=== PATIENT | male | born 1990 | race Two or more races ===

== ENCOUNTER 2017-07-21 20:57 | Emergency (ER) | payer OTHER ==
[2017-07-21 21:10] VITALS: BMI 30.7
[2017-07-21 21:25] LABS: BASOPHIL 0.3 % (0-2.0); EOSINOPHIL 0.6 % (0-4.5); MCHC 33.6 g/dl (32.0-35.9); MEAN CELL VOLUME 80.4 fl (80-96); MEAN PLT VOLUME 8.6 fl (7.5-11.1); NEUTROPHILS 81.4 % (42.8-82.8); PLATELET COUNT 222 K/MM3 (134-434); RDW 13.8 % (11.9-15.9); WHITE BLOOD COUNT 12.6 K/mm3 (4.0-10.0)
[2017-07-21] MEDS ORDERED: ONDANSETRON 4 MG/2 ML VIAL IVPUSH ONE (21:31)
[2017-07-21] MEDS ORDERED: FAMOTIDINE 20 MG/50 ML IVPB 50 ML IVPB ONE ×2 (21:31→21:43)
[2017-07-21] MEDS ORDERED: SODIUM CHLORIDE 0.9% 1000 ML INFUS.BAG IV ONE (21:34)
--- NOTE | 2017-07-21 21:40 | PDOC ---
History of Present Illness - General Chief Complaint: Nausea/Vomiting Stated Complaint: STOMACH PAIN Time Seen by Provider: 07/21/17 21:11 History Source: Patient - History of Present Illness Initial Comments: 07/21/17 23:19 26 year old male with nausea, vomiting and epigastric/ RUQ pain since this morning. reports bilious vomiting > 20 times today with no improvement in symptoms. denies past medical history. Past History - Past Medical History Allergies/Adverse Reactions: Allergies Allergy/AdvReac Type Severity Reaction Status Date / Time No Known Allergies Allergy Verified 07/21/17 21:10 Home Medications: Ambulatory Orders Famotidine [Pepcid] 40 mg PO DAILY #14 tablet 07/22/17 Ondansetron [Zofran -] 4 mg PO BID PRN #4 tablet 07/22/17 Asthma: Yes (CHILDHOOD) - Psycho/Social/Smoking Cessation Hx Anxiety: No Suicidal Ideation: No Smoking Status: Yes Smoking History: Current every day smoker Number of Cigarettes Smoked Daily: 10 Information on smoking cessation initiated: No 'Breaking Loose' booklet given: 10/27/15 Hx Alcohol Use: No Drug/Substance Use Hx: No Review of Systems - Review of Systems Able to Perform ROS?: Yes Is the patient limited Romansh proficient: No Constitutional: No: Symptoms Reported, See HPI, Chills, Diaphoresis, Fever, Loss of Appetite, Malaise, Night Sweats, Weakness, Weight Stable, Unintentional Wgt. Loss, Unexplained wgt Loss, Other ABD/GI: Yes: Nausea, Vomiting, Abdominal cramping. No: Symptoms Reported, See HPI, Abdominal Distended, Abd. Pain w/ defecation, Blood Streaked Bowels, Constipated, Diarrhea, Difficulty Swallowing, Poor Appetite, Poor Fluid Intake, Rectal Bleeding, Indigestion, Tarry Stools, Other : No: Symptoms Reported, See HPI, Burning, Dysuria, Discharge, Frequency, Flank Pain, Hematuria, Incontinence, Pain, Urgency, Testicular Mass, Testicular Swelling, Lesions, Testicular Pain, Other Musculoskeletal: No: Symptoms Reported, See HPI, Back Pain, Gout, Joint Pain, Joint Swelling, Muscle Pain, Muscle Weakness, Neck Pain, Joint Stiffness, Other *Physical Exam - Vital Signs Last Vital Signs Temp Pulse Resp BP Pulse Ox 79 18 131/55 100 07/21/17 21:01 07/21/17 21:01 07/21/17 21:01 07/21/17 21:01 - Physical Exam General Appearance: Yes: Appropriately Dressed Respiratory/Chest: positive: Lungs Clear, Normal Breath Sounds Cardiovascular: positive: Regular Rhythm, Regular Rate Gastrointestinal/Abdominal: positive: Normal Bowel Sounds, Soft Extremity: positive: Normal Capillary Refill, Normal Inspection, Normal Range of Motion Integumentary: positive: Normal Color, Dry, Warm Neurologic: positive: Fully Oriented, Alert, Normal Mood/Affect ED Treatment Course - LABORATORY CBC & Chemistry Diagram: 07/21/17 21:15 07/21/17 21:15 - ADDITIONAL ORDERS Additional order review: 07/21/17 21:15 RBC 6.08 H MCV 80.4 MCHC 33.6 RDW 13.8 MPV 8.6 Neutrophils % 81.4 D Lymphocytes % 10.6 D Monocytes % 7.1 Eosinophils % 0.6 D Basophils % 0.3 - RADIOLOGY Radiology Studies Ordered: Category Date Time Status ABDOMEN US -LIMITED [US] Stat Ultrasound 07/21/17 21:32 Ordered Progress Note - Progress Note Progress Note: A: abdominal pain P: cbc cmp lipase abdominal u/s ua Medical Decision Making - Medical Decision Making 07/22/17 02:34 vomited x1 . will give reglan IV and reevaluate 07/22/17 04:44 tolerating PO. will d/c home *DC/Admit/Observation/Transfer Diagnosis at time of Disposition: Gastroenteritis - Discharge Dispostion Disposition: HOME - Prescriptions Prescriptions: Famotidine [Pepcid] 40 mg PO DAILY #14 tablet Ondansetron [Zofran -] 4 mg PO BID PRN #4 tablet PRN Reason: Nausea - Patient Instructions Printed Discharge Instructions: DI for Nausea -- Adult, DI for Vomiting -- Adult Additional Instructions: drink plenty of fluids start a BRAT (bananas, rice, apples, toast) diet. follow up with your doctor as soon as possible. return to the ED if symptoms worsen. - Post Discharge Activity Work/School Note: Back to Work
[2017-07-21] MEDS ORDERED: ONDANSETRON 4 MG/2 ML VIAL ONE (21:43)
[2017-07-21 21:56] LABS: ALBUMIN 4.6 g/dl (3.4-5.0); ANION GAP 11 (8-16); BILIRUBIN,TOTAL 0.7 mg/dL (0.2-1.0); CALCIUM 9.9 mg/dL (8.5-10.1); CO2 23 mmol/L (21-32); CREATININE 0.9 mg/dL (0.7-1.3); GLUCOSE,RANDOM 107 mg/dL (74-106); SGOT/AST 32 U/L (15-37); SGPT/ALT 60 U/L (12-78)
[2017-07-21 21:57] LABS: ALK PHOS 74 U/L (45-117)
[2017-07-21] MEDS ORDERED: morphine CARPU-JECT 4 MG/1 ML DISP.SYRIN IVPUSH ONE (22:27)
[2017-07-21] MEDS ORDERED: morphine CARPU-JECT 10 MG/1 ML DISP.SYRIN ONE (22:31)
--- NOTE | 2017-07-21 22:34 | PDOC ---
*Physical Exam - Vital Signs Last Vital Signs Temp Pulse Resp BP Pulse Ox 79 18 131/55 100 07/21/17 21:01 07/21/17 21:01 07/21/17 21:01 07/21/17 21:01 ED Treatment Course - LABORATORY CBC & Chemistry Diagram: 07/21/17 21:15 07/21/17 21:15 - ADDITIONAL ORDERS Additional order review: Laboratory Results 07/21/17 21:15 Sodium 138 Potassium 3.7 Chloride 104 Carbon Dioxide 23 D Anion Gap 11 BUN 8 Creatinine 0.9 D Creat Clearance w eGFR > 60 Random Glucose 107 H D Calcium 9.9 Total Bilirubin 0.7 D AST 32 D ALT 60 D Alkaline Phosphatase 74 Total Protein 8.0 Albumin 4.6 Lipase 140 07/21/17 21:15 RBC 6.08 H MCV 80.4 MCHC 33.6 RDW 13.8 MPV 8.6 Neutrophils % 81.4 D Lymphocytes % 10.6 D Monocytes % 7.1 Eosinophils % 0.6 D Basophils % 0.3 - Medications Given in the ED: ED Medications Discontinued Medications Generic Name Dose Route Start Last Admin Trade Name Freq PRN Reason Stop Dose Admin Famotidine/Sodium Chloride 50 mls @ 100 mls/hr 07/21/17 21:31 07/21/17 21:47 Pepcid 20 Mg Premixed Ivpb - IVPB 07/21/17 22:00 100 mls/hr ONCE ONE Administration Morphine Sulfate 4 mg 07/21/17 22:27 07/21/17 22:29 Morphine Injection - IVPUSH 07/21/17 22:28 4 mg ONCE ONE Administration Ondansetron HCl 4 mg 07/21/17 21:31 07/21/17 21:47 Zofran Injection IVPUSH 07/21/17 21:32 4 mg ONCE ONE Administration Sodium Chloride 1,000 ml 07/21/17 21:34 07/21/17 21:47 Normal Saline - IV 07/21/17 21:35 1,000 ml ONCE ONE Administration Medical Decision Making - Medical Decision Making 07/21/17 22:34 agree with care from ARTEM Guillaume *DC/Admit/Observation/Transfer Diagnosis at time of Disposition: Gastroenteritis - Discharge Dispostion Disposition: HOME - Prescriptions Prescriptions: Famotidine [Pepcid] 40 mg PO DAILY #14 tablet Ondansetron [Zofran -] 4 mg PO BID PRN #4 tablet PRN Reason: Nausea - Patient Instructions Printed Discharge Instructions: DI for Nausea -- Adult, DI for Vomiting -- Adult Additional Instructions: drink plenty of fluids start a BRAT (bananas, rice, apples, toast) diet. follow up with your doctor as soon as possible. return to the ED if symptoms worsen. - Post Discharge Activity Work/School Note: Back to Work
[2017-07-22] MEDS ORDERED: DICYCLOMINE HCL 20 MG TABLET PO ONE (00:28)
[2017-07-22] MEDS ORDERED: DICYCLOMINE HCL 10 MG CAPSULE ONE (00:50)
[2017-07-22 01:47] LABS: URINE APPEARANCE CLEAR; URINE BILIRUBIN NEGATIVE (NEGATIVE); URINE BLOOD NEGATIVE (NEGATIVE); URINE COLOR LTYELLOW; URINE GLUCOSE (UA) NEGATIVE (NEGATIVE); URINE KETONE 1+ (NEGATIVE); URINE LEUK ESTERASE NEGATIVE (NEGATIVE); URINE NITRITE NEGATIVE (NEGATIVE); URINE PROTEIN NEGATIVE (NEGATIVE); URINE UROBILINOGEN NEGATIVE mg/dL (0.2-1.0)
[2017-07-22] MEDS ORDERED: SODIUM CHLORIDE 1,000 ML IV STA (02:31)
[2017-07-22] MEDS ORDERED: METOCLOPRAMIDE HCL INJECTION 10 MG/2 ML VIAL IVPB ONE (02:31)
[2017-07-22] MEDS ORDERED: METOCLOPRAMIDE HCL INJECTION 10 MG/2 ML VIAL ONE (02:32)
[2017-07-22 04:59] VITALS: BP 148/92; PULSE 68
== END 2017-07-22 04:59 | disposition home or self-care (01) ==
LOC: JER 20:57
PROC: 3E033GC Introduction of Other Therapeutic Substance into Peripheral Vein, Percutaneous Approach (ICD-10-PCS; principal; 2017-07-21)
PROC: 3E033GC Introduction of Other Therapeutic Substance into Peripheral Vein, Percutaneous Approach (ICD-10-PCS; 2017-07-21)
PROC: 3E033NZ Introduction of Analgesics, Hypnotics, Sedatives into Peripheral Vein, Percutaneous Approach (ICD-10-PCS; 2017-07-21)
DX: K52.9 Noninfective gastroenteritis and colitis, unspecified (principal)
CPT/HCPCS: 36415; 76705-TC; 80053; 81003; 83690; 85025; 96365; 96375; 99282-25

== ENCOUNTER 2020-01-18 18:53 | Inpatient (IN) | payer OTHER ==
--- NOTE | 2020-01-18 19:03 | PDOC ---
Rapid Medical Evaluation Medical Evaluation: Allergies Allergy/AdvReac Type Severity Reaction Status Date / Time No Known Allergies Allergy Verified 07/21/17 21:10 01/18/20 19:03 I have performed a brief in-person evaluation of this patient. The patient presents with a chief complaint of:intractable n/v and abd pain that started at 1pm today. No change in BM, f/c. Reports daily marijuana use. Had similar sxs in past and dx w/ ? pancreatitis per pt. Denies ETOH use today Pertinent physical exam findings:pt actively vomiting at triage, Vss I have ordered the following:labs/IVF/zofran The patient will proceed to the ED for further evaluation. Discharge Disposition - Diagnosis Nausea and vomiting Qualifiers: Vomiting type: unspecified Vomiting Intractability: non-intractable Qualified Code(s): R11.2 - Nausea with vomiting, unspecified - Referrals - Patient Instructions - Post Discharge Activity
[2020-01-18 19:09] VITALS: BMI 29.7
[2020-01-18] MEDS ORDERED: SODIUM CHLORIDE 1,000 ML IV STA (19:09)
[2020-01-18] MEDS ORDERED: ONDANSETRON 4 MG/2 ML VIAL IVPUSH ONE (19:09)
[2020-01-18] MEDS ORDERED: ONDANSETRON 4 MG/2 ML VIAL ONE (19:33)
[2020-01-18 20:29] LABS: BASO % 0.3 % (0-2.0); HEMATOCRIT 44.4 % (35.4-49); HEMOGLOBIN 14.7 GM/dL (11.7-16.9); LYMPH % 6.3 % (8-40); MCH 26.9 pg (25.7-33.7); MCHC 33.2 g/dl (32.0-35.9); MEAN CELL VOLUME 81.1 fl (80-96); MEAN PLT VOLUME 9.2 fl (7.5-11.1); MONO % 4.9 % (3.8-10.2); NEUT % 88.5 % (42.8-82.8); PLATELET COUNT 221 K/MM3 (134-434); RBC 5.47 M/mm3 (4.00-5.60); RDW 13.8 % (11.9-15.9); WHITE BLOOD COUNT 12.4 K/mm3 (4.0-10.0)
[2020-01-18] MEDS ORDERED: FAMOTIDINE 20 MG/50 ML IVPB 20 MG/50 ML MG IVPB ONE ×2 (20:51→21:19)
[2020-01-18 20:57] LABS: ALBUMIN 4.5 g/dl (3.4-5.0); BILIRUBIN,TOTAL 0.6 mg/dL (0.2-1); BLOOD UREA NITROGEN 9.8 mg/dL (7-18); CALCIUM 10.1 mg/dL (8.5-10.1); POTASSIUM 4.5 mmol/L (3.5-5.1)
[2020-01-18] MEDS ORDERED: METOCLOPRAMIDE HCL INJECTION 10 MG/2 ML VIAL IVPUSH ONE (21:16)
[2020-01-18] MEDS ORDERED: morphine CARPU-JECT 2 MG/1 ML DISP.SYRIN IVPUSH ONE (21:16)
[2020-01-18] MEDS ORDERED: METOCLOPRAMIDE HCL INJECTION 10 MG/2 ML VIAL ONE (21:18)
[2020-01-18] MEDS ORDERED: MORPHINE SULFATE 2 MG/ML VIAL ONE (21:19)
--- NOTE | 2020-01-18 22:39 | PDOC ---
Documentation entered by Fred Herring SCRIBE, acting as scribe for Carmelina Chew DO. Carmelina Chew DO: This documentation has been prepared by the Nevaeh schmid Nirvannie, SCRIBE, under my direction and personally reviewed by me in its entirety. I confirm that the documentation accurately reflects all work, treatment, procedures, and medical decision making performed by me. History of Present Illness - General Chief Complaint: Nausea/Vomiting Stated Complaint: DEHYDRATED/POSSIBLE STOMACH VIRUS Time Seen by Provider: 01/18/20 19:04 History Source: Patient Exam Limitations: No Limitations - History of Present Illness Initial Comments: 01/18/20 20:05 The patient is a 29 year old male, with no significant past medical history, who presents to the emergency department with 2 days of left lower quadrant abdominal pain, nausea, and vomiting. As per patient, his symptoms initially onset 2 days ago with diarrhea and since has progressed to abdominal pain, nausea, and vomiting. Patient notes a similar episode approximately a year ago at which time he needed a cat scan of his pancreas. Per EMR, patient was evaluated in the ER in 2017 and diagnosed with gastroenteritis. He denies any excessive alcohol usage, hematemesis, melena, hematochezia, fever, chills, headache, dizziness. He denies any chest pain or shortness of breath. Allergies: NKDA Social History: Marijuana smoker (daily). Past History - Past Medical History Allergies/Adverse Reactions: Allergies Allergy/AdvReac Type Severity Reaction Status Date / Time No Known Allergies Allergy Verified 01/18/20 19:09 Home Medications: Ambulatory Orders Amoxicillin 0 mg PO DAILY 01/18/20 Asthma: Yes (CHILDHOOD) COPD: No - Psycho Social/Smoking Cessation Hx Smoking Status: Yes Smoking History: Never smoked Number of Cigarettes Smoked Daily: 10 'Breaking Loose' booklet given: 10/27/15 Hx Alcohol Use: No Drug/Substance Use Hx: No Review of Systems - Review of Systems Able to Perform ROS?: Yes Comments:: 01/18/20 20:06 GENERAL/CONSTITUTIONAL: No fever or chills. No weakness. HEAD, EYES, EARS, NOSE AND THROAT: No change in vision. No ear pain or discharge. No sore throat. GASTROINTESTINAL: +nausea, +vomiting, +diarrhea +abdominal pain. No constipation. GENITOURINARY: No dysuria, frequency, or change in urination. CARDIOVASCULAR: No chest pain or shortness of breath. RESPIRATORY: No cough, wheezing, or hemoptysis. MUSCULOSKELETAL: No joint or muscle swelling or pain. No neck or back pain. SKIN: No rash NEUROLOGIC: No headache, vertigo, loss of consciousness, or change in strength/ sensation. ENDOCRINE: No increased thirst. No abnormal weight change. HEMATOLOGIC/LYMPHATIC: No anemia, easy bleeding, or history of blood clots. ALLERGIC/IMMUNOLOGIC: No hives or skin allergy. All Other Systems: Reviewed and Negative *Physical Exam - Vital Signs Last Vital Signs Temp Pulse Resp BP Pulse Ox 95 H 18 109/46 L 100 01/18/20 19:06 01/18/20 19:06 01/18/20 19:06 01/18/20 19:06 - Physical Exam 01/18/20 20:06 GENERAL: Awake, in no acute distress HEAD: No signs of trauma EYES: PERRLA, EOMI, sclera anicteric, conjunctiva clear, visual acuity grossly intact ENT: Moist mucosa NECK: Normal ROM, supple, no lymphadenopathy or JVD. LUNGS: Breath sounds equal, clear to auscultation bilaterally. No wheezes, and no crackles. Normal work of breathing. HEART: Regular rate and rhythm, normal S1 and S2, no murmurs, rubs or gallops ABDOMEN: +LLQ tenderness. No guarding or rebound. Soft, normoactive bowel sounds. Non-distended. : Deferred. CHEST WALL: Nontender BACK: No midline tenderness. EXTREMITIES: Normal range of motion, no edema. No clubbing or cyanosis. No erythema, or tenderness NEUROLOGICAL: Alert, and oriented x4, Nonfocal. SKIN: Warm, Dry, normal turgor, no rashes or lesions noted. ED Treatment Course - LABORATORY CBC & Chemistry Diagram: 01/18/20 20:10 01/18/20 20:10 - ADDITIONAL ORDERS Additional order review: Laboratory Results 01/18/20 01/18/20 20:10 20:10 Sodium 140 Potassium 4.5 Chloride 108 H Carbon Dioxide 23 Anion Gap 10 BUN 9.8 Creatinine 1.0 Est GFR (CKD-EPI)AfAm 115.72 Est GFR (CKD-EPI)NonAf 99.85 Random Glucose 143 H Calcium 10.1 Total Bilirubin 0.6 AST 32 ALT 28 Alkaline Phosphatase 78 Total Protein 8.0 Albumin 4.5 Lipase 74 01/18/20 20:10 RBC 5.47 MCV 81.1 MCHC 33.2 RDW 13.8 MPV 9.2 Neutrophils % 88.5 H Lymphocytes % 6.3 L D Monocytes % 4.9 Eosinophils % 0.0 D Basophils % 0.3 - RADIOLOGY Radiology Studies Ordered: Category Date Time Status ABDOMEN & PELVIS CT WITH CONTR [CT] Stat CT Scan 01/18/20 20:49 Completed - Medications Given in the ED: ED Medications Discontinued Medications Generic Name Dose Route Start Last Admin Trade Name Freq PRN Reason Stop Dose Admin Sodium Chloride 1,000 mls @ 1,000 mls/hr 01/18/20 19:09 01/18/20 20:13 Normal Saline - IV 01/18/20 20:08 1,000 mls/hr ASDIR STA Administration Famotidine/Sodium Chloride 20 mg in 50 mls @ 100 mls/hr 01/18/20 20:51 21:32 Pepcid 20 Mg Premixed Ivpb - IVPB 01/18/20 21:20 100 mls/hr ONCE ONE Administration Metoclopramide HCl 10 mg 01/18/20 21:16 01/18/20 21:35 Reglan Injection - IVPUSH 01/18/20 21:17 10 mg ONCE ONE Administration Morphine Sulfate 2 mg 01/18/20 21:16 01/18/20 21:32 Morphine Injection - IVPUSH 01/18/20 21:17 2 mg ONCE ONE Administration Ondansetron HCl 4 mg 01/18/20 19:09 01/18/20 20:13 Zofran Injection IVPUSH 01/18/20 19:10 4 mg ONCE ONE Administration Medical Decision Making - Medical Decision Making 01/18/20 22:37 29-year-old male with history of marijuana abuse, daily with vomiting and lower abdominal pain CT scan consistent with possible colitis There are no secondary signs of acute appendicitis though appendix is not specifically identified Patient has persistent pain and vomiting despite IV fluids Pepcid Reglan and Zofran We will admit for observation and further management Discharge - Discharge Information Problems reviewed: Yes Clinical Impression/Diagnosis: Colitis, Abdominal pain Nausea and vomiting Qualifiers: Vomiting type: unspecified Vomiting Intractability: non-intractable Qualified Code(s): R11.2 - Nausea with vomiting, unspecified - Admission Yes - Follow up/Referral - Patient Discharge Instructions - Post Discharge Activity
--- NOTE | 2020-01-18 22:49 | PN ---
Teaching Attending Note Name of Resident: Marlen Childers ATTENDING PHYSICIAN STATEMENT I saw and evaluated the patient. I reviewed the resident's note and discussed the case with the resident. I agree with the resident's findings and plan as documented. SUBJECTIVE: Patient is a 29 year old man with a PMH of Daily marijuana use and Tobacco use who presents to the ER with 2 days of left lower quadrant abdominal pain, nausea , and vomiting. His symptoms initially started 2 days ago with diarrhea and since has progressed to abdominal pain, nausea, and vomiting. Patient notes a similar episode approximately a year ago at which time he needed a CAT scan of his pancreas. Per EMR, patient was evaluated in the ER on 07/21/2017 for intractable vomiting and diagnosed with gastroenteritis. He denies any excessive alcohol usage, hematemesis, melena, hematochezia, fever, chills, headache, dizziness, dysuria, chest pain or shortness of breath. Denies alcohol or illicit drug abuse. No sick contacts or recent travels. OBJECTIVE: Alert Vital Signs Period Temp Pulse Resp BP Sys/Jameson Pulse Ox Last 24 Hr 97.9 F 95-95 18-20 109-111/46-61 100-100 HEENT: No Jaundice, eye redness or discharge, PERRLA, EOMI. Normocephalic, atraumatic. External ears are normal and hearing is grossly intact. No nasal discharge. Neck: Supple, nontender. No palpable adenopathy or thyromegaly. No JVD Chest: Good effort. Clear to auscultation and percussion. Heart: Regular. No S3, rub or murmur Abdomen: Not distended, soft, nontender and no HSM. No rebound or guarding. Normal bowel sounds. Ext: Peripheral pulses intact. No leg edema. Skin: Warm and dry. No petechiae, rash or ecchymosis. Neuro: Alert. Oriented x3. CN 2-12 grossly intact. Sensation grossly intact in all four extremities and DTR are symmetric. Psych: Appropriate mood and affect. Good insight. Home Medications Medication Instructions Recorded Amoxicillin 0 mg PO DAILY 01/18/20 Abnormal Lab Results 01/18/20 01/18/20 20:10 20:10 WBC 12.4 H Absolute Neuts (auto) 11.0 H Neutrophils % 88.5 H Lymphocytes % 6.3 L D Chloride 108 H Random Glucose 143 H ASSESSMENT AND PLAN: 1. Colitis - CT scan of abdomen/pelvis with IV contrast didnot visualize the appendix and showed possible colitis of transverse and ascending colon. In the ER he got IV NS, IV Reglan, Pepcid, Morphine and Zofran. Urine toxicology and urinalysis are pending. Will treat with IV Flagyl and Rocephin. Consult Surgery and GI. Keep him NPO, continue IV NS and get EKG. 2. Tobacco Use Counseled on risks associated with tobacco use. We will provide patient all the necessary assistance to facilitate smoking cessation and prescribe Nicotine patch. 3. DVT prophylaxis - Lovenox 40 mg SQ q 24 hours. 4. Advance directives - Full code
[2020-01-18] MEDS ORDERED: SODIUM CHLORIDE 1,000 ML IV SCH (23:45)
--- NOTE | 2020-01-18 23:49 | HP ---
CHIEF COMPLAINT: intractable nausea/ vomiting PCP: none HISTORY OF PRESENT ILLNESS: 29 y.o. M PMH daily marijuana use presenting for multiple episodes of nausea w/ NBNB vomiting and diarrhea. The patient says he ate fried chicken last night around 8PM, began to have abdominal cramping and has nonbloody diarrhea. He has not been able to tolerate PO since this time however diarrhea subsided. This afternoon around 1PM he began to have intractable NBNB vomiting with new onset abdominal pain. The pain was sharp 10/10, localized to LLQ, nonradiating. He also endorses smoking marijuana late last evening/ this morning. He also reports feeling "feverish" at home although did not take his temperature. ER course was notable for: (1) IV zofran 4mg, reglan 10mg. 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 Smoking: yes but cannot quantify Alcohol: denies Drugs: marijuana, daily Allergies No Known Allergies Allergy (Verified 01/18/20 19:09) HOME MEDICATIONS: Home Medications Medication Instructions Recorded Amoxicillin 0 mg PO DAILY 01/18/20 REVIEW OF SYSTEMS CONSTITUTIONAL: loss of appetite Absent: fever, chills, diaphoresis, generalized weakness, malaise, weight change HEENT: Absent: rhinorrhea, nasal congestion, throat pain, throat swelling, difficulty swallowing, mouth swelling, ear pain, eye pain, visual changes CARDIOVASCULAR: Absent: chest pain, syncope, palpitations, irregular heart rate, lightheadedness , peripheral edema RESPIRATORY: Absent: cough, shortness of breath, dyspnea with exertion, orthopnea, wheezing, stridor, hemoptysis GASTROINTESTINAL:abdominal pain, nausea, vomiting, diarrhea, Absent: abdominal distension, constipation, melena, hematochezia GENITOURINARY: Absent: dysuria, frequency, urgency, hesitancy, hematuria, flank pain, genital pain MUSCULOSKELETAL: Absent: myalgia, arthralgia, joint swelling, back pain, neck pain SKIN: Absent: rash, itching, pallor HEMATOLOGIC/IMMUNOLOGIC: Absent: easy bleeding, easy bruising, lymphadenopathy, frequent infections ENDOCRINE: Absent: unexplained weight gain, unexplained weight loss, heat intolerance, cold intolerance NEUROLOGIC: Absent: headache, focal weakness or paresthesias, dizziness, unsteady gait, seizure, mental status changes, bladder or bowel incontinence PSYCHIATRIC: Absent: anxiety, depression, suicidal or homicidal ideation, hallucinations. PHYSICAL EXAMINATION Vital Signs - 24 hr 01/18/20 01/18/20 19:06 19:30 Temperature 97.9 F Pulse Rate 95 H Pulse Rate [ 95 H Right Radial] Respiratory 18 20 Rate Blood Pressure 109/46 L Blood Pressure 111/61 [Left Arm] O2 Sat by Pulse 100 100 Oximetry (%) GENERAL: Awake, alert, and fully oriented, in no acute distress. HEENT: Conjunctiva non-injected, sclera anicteric, NCAT, MMM LUNGS: Breath sounds equal, clear to auscultation bilaterally. No wheezes, and no crackles. No accessory muscle use. HEART: Regular rate and rhythm, normal S1 and S2 without murmur, rub or gallop. ABDOMEN: Soft, NTND, normoactive bowel sounds, no guarding, no rebound, mcburneys & murphys sign negative. Negative obturator/psoas sign. EXTREMITIES: 2+ pulses, warm, well-perfused. No calf tenderness. No peripheral edema. NEUROLOGICAL: Cranial nerves II-XII intact. Normal speech. Normal gait. PSYCHIATRIC: Appropriate mood and affect. SKIN: No rashes or lesions noted Laboratory Results - last 24 hr 01/18/20 01/18/20 01/18/20 20:10 20:10 20:10 WBC 12.4 H RBC 5.47 Hgb 14.7 Hct 44.4 MCV 81.1 MCH 26.9 MCHC 33.2 RDW 13.8 Plt Count 221 MPV 9.2 Absolute Neuts (auto) 11.0 H Neutrophils % 88.5 H Lymphocytes % 6.3 L D Monocytes % 4.9 Eosinophils % 0.0 D Basophils % 0.3 Nucleated RBC % 0 Sodium 140 Potassium 4.5 Chloride 108 H Carbon Dioxide 23 Anion Gap 10 BUN 9.8 Creatinine 1.0 Est GFR (CKD-EPI)AfAm 115.72 Est GFR (CKD-EPI)NonAf 99.85 Random Glucose 143 H Calcium 10.1 Total Bilirubin 0.6 AST 32 ALT 28 Alkaline Phosphatase 78 Total Protein 8.0 Albumin 4.5 Lipase 74 ASSESSMENT/PLAN: 29 y.o. M PMH daily marijuana use presenting for N/V/D, abdominal pain #Acute colitis vs acute appendicitis -emesis subsided s/p reglan, zofran-- f/u EKG regarding further zofran use -CT abdomen: limited view of appendix, cannot r/o appendicitis. limite eval of colon; mild concentric wall thickening along ascending & prox transverse colon, possible acute colitis -no peritoneal signs -leukocytosis 12.4 -afebrile -NPO -IVF -abx: flagyl, rocephin started -GI consulted-- Dr. Hughes -Surgery consulted- Dr. Geiger -pain well controlled #Marijuana use disorder -educated patient on importance of stopping use -f/u U-tox, UA #Tobacco dependence -Educated patient on risks of tobacco use -patch or nicorette gum prn #FEN -IVF NS @85cc/hr -replete electrolytes as needed -NPO #PPX -protonix -SCDs #Dispo -med surg Visit type - Emergency Visit Emergency Visit: Yes ED Registration Date: 01/18/20 Care time: The patient presented to the Emergency Department on the above date and was hospitalized for further evaluation of their emergent condition. - New Patient This patient is new to me today: Yes Date on this admission: 01/19/20 - Critical Care Critical Care patient: No ATTENDING PHYSICIAN STATEMENT I saw and evaluated the patient. I reviewed the resident's note and discussed the case with the resident. I agree with the resident's findings and plan as documented. SUBJECTIVE: OBJECTIVE: ASSESSMENT AND PLAN:
[2020-01-19] MEDS ORDERED: CEFTRIAXONE 1 GM/50 ML BAG ONE (00:36)
[2020-01-19] MEDS: CEFTRIAXONE 1 GM in DEXTROSE 5%-WATER - 50 ML IVPB SCH ×2 (00:50→09:36)
[2020-01-19 04:15] LABS: EPI CELLS 4.2 /HPF (0-5/HPF); HYALINE CASTS 11 /lpf (0-8); PH,URINE >= 9.0 (5.0-8.0); URINE APPEARANCE CLEAR; URINE BACTERIA 0.3 /hpf (NEGATIVE); URINE BILIRUBIN NEGATIVE (NEGATIVE); URINE COLOR YELLOW; URINE GLUCOSE (UA) NEGATIVE (NEGATIVE); URINE KETONE 3+ (NEGATIVE); URINE LEUK ESTERASE NEGATIVE (NEGATIVE); URINE NITRITE NEGATIVE (NEGATIVE); URINE PROTEIN 1+ (NEGATIVE); URINE RBC 1 /hpf (0-4); URINE WBC 1 /hpf (0-5)
[2020-01-19 08:06] LABS: BASO % 0.1 % (0-2.0); HEMATOCRIT 39.5 % (35.4-49); HEMOGLOBIN 13.5 GM/dL (11.7-16.9); LYMPH % 10.7 % (8-40); MCH 27.3 pg (25.7-33.7); MCHC 34.1 g/dl (32.0-35.9); MEAN CELL VOLUME 80.1 fl (80-96); MEAN PLT VOLUME 9.3 fl (7.5-11.1); MONO % 5.9 % (3.8-10.2); NEUT % 83.3 % (42.8-82.8); PLATELET COUNT 197 K/MM3 (134-434); RBC 4.94 M/mm3 (4.00-5.60); RDW 13.7 % (11.9-15.9); WHITE BLOOD COUNT 7.5 K/mm3 (4.0-10.0)
[2020-01-19 08:13] LABS: INR 1.23 (0.83-1.09); PROTHROMBIN TIME (PATIENT) 14.5 SEC (9.7-13.0)
[2020-01-19 08:16] LABS: ACTIVATED PTT 33.2 SECONDS (25.2-36.5)
[2020-01-19] MEDS ORDERED: DEXTROSE 5%-WATER - 50 ML IVPB ONE (09:18)
[2020-01-19] MEDS ORDERED: cefTRIAXone SODIUM 1 GM VIAL ONE (09:18)
[2020-01-19 09:30] LABS: ALBUMIN 3.9 g/dl (3.4-5.0); BILIRUBIN,TOTAL 0.4 mg/dL (0.2-1); BLOOD UREA NITROGEN 10.2 mg/dL (7-18); CALCIUM 8.8 mg/dL (8.5-10.1); CREATININE 0.9 mg/dL (0.55-1.3); POTASSIUM 3.7 mmol/L (3.5-5.1); TOT PROT 7.1 g/dl (6.4-8.2)
[2020-01-19 11:06] LABS: COCAINE, UR NEGATIVE ng/ml (CUTOFF=300); METHADONE, UR NEGATIVE ng/ml (CUTOFF=300); OPIATES, URI NEGATIVE ng/ml (CUTOFF=300); PHENCYCLIDINE,URINE NEGATIVE ng/ml (CUTOFF=25); URINE AMPHETAMINES NEGATIVE ng/ml (CUTOFF=500); URINE BARBITURATES NEGATIVE ng/ml (CUTOFF=200); URINE BENZODIAZEPINES NEGATIVE ng/ml (CUTOFF=200)
--- NOTE | 2020-01-19 11:52 | EKG ---
Test Reason : Blood Pressure : / mmHG Vent. Rate : 048 BPM Atrial Rate : 048 BPM P-R Int : 138 ms QRS Dur : 098 ms QT Int : 506 ms P-R-T Axes : 073 053 023 degrees QTc Int : 452 ms SINUS BRADYCARDIA OTHERWISE NORMAL ECG NO PREVIOUS ECGS AVAILABLE Confirmed by LETTY MISTRY MD ([id number]) on 01/19/2020 11:51:43 AM Referred By: Confirmed By:LETTY MISTRY MD
[2020-01-19 13:22] VITALS: BP 119/58; PULSE 54; TEMP 98.6
--- NOTE | 2020-01-19 13:22 | CON.GI ---
Consult Consult Specialty:: GI Referred by:: Hospitalist Service Reason for Consultation:: Nausea, vomiting, diarrhea - History of Present Illness Chief Complaint: Nausea, vomiting, diarrhea History of Present Illness: 29M admitted yesterday. Recent events followed this timeline: Was in usual state of health Thursday and Thursday nights ate take out chicken and thursday morning began to have diarrhea. Watery, non-bloody. Had two wisdom teeth pulled Thursday during the day and was given amoxicillin. Took a total of two pills Thursday evening ate soup Thursday night ate [place] take out food Developed nausea / vomiting Thursday and diarrhea persisted Thursday Came to ER. CT scan raised question of possible right sided colitis vs. underdistention No associated rectal bleeding, fevers, chills Smokes marijuana regularly, the last being Thursday GI and Surgery called. No stool studies ordered. Started on Ceftriaxone and flagyl by primary team Feels better now. No further N/V/D. Wants to eat. - History Source History Provided By: Patient, Medical Record Limitations to Obtaining History: No Limitations - Past Medical History Additional Medical History: Denies - Past Surgical History Additional Surgical History: Left ACL repair - Alcohol/Substance Use Hx Alcohol Use: No History of Substance Use: reports: Marijuana - Smoking History Smoking history: Never smoked Have you smoked in the past 12 months: No Aproximately how many cigarettes per day: 10 - Social History Usual Living Arrangement: With Parent ADL: Independent Occupation: [employer] of : [facility] [employer] History of Recent Travel: No Home Medications - Allergies Allergies/Adverse Reactions: Allergies Allergy/AdvReac Type Severity Reaction Status Date / Time No Known Allergies Allergy Verified 01/18/20 19:09 - Home Medications Home Medications: Ambulatory Orders Amoxicillin 0 mg PO DAILY 01/18/20 Family Medical History Other Family History: Mother: Alive: healthy. Father: alive, healthy. 1 brother, 2 sisters: healthy. No children. No family history of colorectal cancer or other GI malignancy. No history of IBD Review of Systems - Review of Systems Constitutional: denies: Chills, Fever Gastrointestinal: reports: Bloating, Nausea, Vomiting. denies: Rectal Bleeding , Vomiting Blood Physical Exam-GI Vital Signs: Vital Signs Temperature 98.3 F 01/19/20 11:00 Pulse Rate 52 L 01/19/20 11:00 Respiratory Rate 18 01/19/20 11:00 Blood Pressure 118/46 L 01/19/20 11:00 O2 Sat by Pulse Oximetry (%) 97 01/19/20 04:39 Constitutional: Yes: Calm Eyes: No: Sclera Icterus Cardiovascular: Yes: Bradycardia Respiratory: Yes: CTA Bilaterally Gastrointestinal Inspection: No: Distention ...Auscultate: Yes: Normoactive Bowel Sounds ...Palpate: Yes: Soft. No: Hepatomegaly, Splenomegaly, Tenderness ...Percussion: No: Tympanitic Edema: No (No LE edema) Neurological: Yes: Alert Labs: CBC, BMP 01/19/20 06:30 01/19/20 06:30 INR, PTT INR 1.23 (0.83-1.09) H 01/19/20 06:30 Imaging - Results Cat Scan: Report Reviewed, Image Reviewed Problem List - Problems (1) Gastroenteritis Assessment/Plan: Acute gastroenteritis / possible food posisoning. Clinically improving. Does not appear toxic and no focal exam findings Advise: Stop antibiotics Stool for Culture, C. Diff if persistent diarrhea Advance to clears. If can tolerate, advance to low fiber diet Advised cessation of marijuana Patient noted bradycardic. May have been told of this by his PMD previously. Eval per Primary team Code(s): K52.9 - NONINFECTIVE GASTROENTERITIS AND COLITIS, UNSPECIFIED
--- NOTE | 2020-01-19 13:39 | PN ---
Physical Exam: SUBJECTIVE: Patient seen and examined at the bedside. Noted fever overnight. Patient stated that he is feeling well and has not had any episodes of vomiting or diarrhea since admission. Wants to eat now. Denied cp, sob, abd pain, n/v/c/d , headaches, dizziness, lightheadedness. OBJECTIVE: Vital Signs Period Temp Pulse Resp BP Sys/Jameson Pulse Ox Last 24 Hr 97.4 F-101 F 52-95 17-20 107-119/46-63 97-100 GENERAL: The patient is awake, alert, and fully oriented, in no acute distress. EYES: PERRL, extraocular movements intact, conjunctiva clear. ENT: Oropharynx clear without exudates, moist mucous membranes. LUNGS: Breath sounds equal, clear to auscultation bilaterally, no wheezes, no crackles, no accessory muscle use. HEART: Regular rate and rhythm, S1, S2 without murmur, rub. ABDOMEN: Soft, nontender, nondistended, normoactive bowel sounds, no guarding, no rebound, no masses. EXTREMITIES: 2+ pulses, warm, well-perfused, no edema. PSYCH: Normal mood, normal affect. SKIN: Warm, dry, normal turgor, no rashes or lesions noted. Laboratory Results - last 24 hr 01/18/20 01/18/20 01/18/20 20:10 20:10 20:10 WBC 12.4 H RBC 5.47 Hgb 14.7 Hct 44.4 MCV 81.1 MCH 26.9 MCHC 33.2 RDW 13.8 Plt Count 221 MPV 9.2 Absolute Neuts (auto) 11.0 H Neutrophils % 88.5 H Lymphocytes % 6.3 L D Monocytes % 4.9 Eosinophils % 0.0 D Basophils % 0.3 Nucleated RBC % 0 PT with INR INR PTT (Actin FS) Sodium 140 Potassium 4.5 Chloride 108 H Carbon Dioxide 23 Anion Gap 10 BUN 9.8 Creatinine 1.0 Est GFR (CKD-EPI)AfAm 115.72 Est GFR (CKD-EPI)NonAf 99.85 Random Glucose 143 H Calcium 10.1 Total Bilirubin 0.6 AST 32 ALT 28 Alkaline Phosphatase 78 Total Protein 8.0 Albumin 4.5 Lipase 74 Urine Color Urine Appearance Urine pH Ur Specific Athena Urine Protein Urine Glucose (UA) Urine Ketones Urine Blood Urine Nitrite Urine Bilirubin Urine Urobilinogen Ur Leukocyte Esterase Urine WBC (Auto) Urine RBC (Auto) Urine Casts (Auto) U Epithel Cells (Auto) U Sm Round Cell (Auto) Urine Bacteria (Auto) Opiates Screen Methadone Screen Barbiturate Screen Phencyclidine Screen Ur Amphetamines Screen MDMA (Ecstasy) Screen Benzodiazepines Screen Cocaine Screen U Marijuana (THC) Screen Blood Type Antibody Screen 01/18/20 01/19/20 01/19/20 21:20 00:33 06:30 WBC 7.5 RBC 4.94 Hgb 13.5 Hct 39.5 MCV 80.1 MCH 27.3 MCHC 34.1 RDW 13.7 Plt Count 197 MPV 9.3 Absolute Neuts (auto) 6.3 Neutrophils % 83.3 H Lymphocytes % 10.7 D Monocytes % 5.9 Eosinophils % 0.0 Basophils % 0.1 Nucleated RBC % 0 PT with INR INR PTT (Actin FS) Sodium Potassium Chloride Carbon Dioxide Anion Gap BUN Creatinine Est GFR (CKD-EPI)AfAm Est GFR (CKD-EPI)NonAf Random Glucose Calcium Total Bilirubin AST ALT Alkaline Phosphatase Total Protein Albumin Lipase Urine Color Yellow Urine Appearance Clear Urine pH >= 9.0 H Ur Specific Athena 1.021 Urine Protein 1+ H Urine Glucose (UA) Negative Urine Ketones 3+ H Urine Blood Negative Urine Nitrite Negative Urine Bilirubin Negative Urine Urobilinogen 1.0 Ur Leukocyte Esterase Negative Urine WBC (Auto) 1 Urine RBC (Auto) 1 Urine Casts (Auto) 11 U Epithel Cells (Auto) 4.2 U Sm Round Cell (Auto) None seen Urine Bacteria (Auto) 0.3 Opiates Screen Negative Methadone Screen Negative Barbiturate Screen Negative Phencyclidine Screen Negative Ur Amphetamines Screen Negative MDMA (Ecstasy) Screen Negative Benzodiazepines Screen Negative Cocaine Screen Negative U Marijuana (THC) Screen Positive A* Blood Type Antibody Screen 01/19/20 01/19/20 01/19/20 06:30 06:30 06:30 WBC RBC Hgb Hct MCV MCH MCHC RDW Plt Count MPV Absolute Neuts (auto) Neutrophils % Lymphocytes % Monocytes % Eosinophils % Basophils % Nucleated RBC % PT with INR 14.50 H INR 1.23 H PTT (Actin FS) 33.2 Sodium 141 Potassium 3.7 Chloride 111 H Carbon Dioxide 20 L Anion Gap 11 BUN 10.2 Creatinine 0.9 Est GFR (CKD-EPI)AfAm 131.44 Est GFR (CKD-EPI)NonAf 113.41 Random Glucose 109 H Calcium 8.8 Total Bilirubin 0.4 AST 21 ALT 24 Alkaline Phosphatase 68 Total Protein 7.1 Albumin 3.9 Lipase Urine Color Urine Appearance Urine pH Ur Specific Athena Urine Protein Urine Glucose (UA) Urine Ketones Urine Blood Urine Nitrite Urine Bilirubin Urine Urobilinogen Ur Leukocyte Esterase Urine WBC (Auto) Urine RBC (Auto) Urine Casts (Auto) U Epithel Cells (Auto) U Sm Round Cell (Auto) Urine Bacteria (Auto) Opiates Screen Methadone Screen Barbiturate Screen Phencyclidine Screen Ur Amphetamines Screen MDMA (Ecstasy) Screen Benzodiazepines Screen Cocaine Screen U Marijuana (THC) Screen Blood Type A POSITIVE Antibody Screen Negative Active Medications Generic Name Dose Route Start Last Admin Trade Name Freq PRN Reason Stop Dose Admin Sodium Chloride 1,000 mls @ 83 mls/hr 01/18/20 23:45 01/19/20 00:50 Normal Saline - IV 83 mls/hr ASDIR NEO Administration ASSESSMENT/PLAN: Pavan Ewing is a 29 year old male with a past medical history of daily marijuana use admitted for vomiting and abdominal pain likely secondary to acute gastroenteritis. Acute Gastroenteritis - CT abdomen: limited view of appendix, cannot r/o appendicitis. limited eval of colon; mild concentric wall thickening along ascending & prox transverse colon, possible acute colitis - leukocytosis resolved, likely reactive - GI consulted, recs appreciated - clear liquid diet and advance to low fiber if tolerating well - stopped antibiotics - IVF for now, can be stopped if patient tolerating diet well - Surgery consulted Marijuana use disorder - educated patient on importance of stopping use - Utox positive for cannabis Tobacco dependence - Educated patient on risks of tobacco use - patch or nicorette gum prn DVT PPX -SCDs FEN - IVF NS @85cc/hr, can be stopped if tolerating diet well - continue to monitor electrolytes and replete as necessary - clear liquid diet Dispo - continue to monitor on med surg Visit type - Emergency Visit Emergency Visit: Yes ED Registration Date: 01/18/20 Care time: The patient presented to the Emergency Department on the above date and was hospitalized for further evaluation of their emergent condition. - New Patient This patient is new to me today: Yes Date on this admission: 01/19/20 - Critical Care Critical Care patient: No
--- NOTE | 2020-01-19 15:06 | CONSULT ---
Consult Consult Specialty:: General Surgery Referred by:: Vida Childers Reason for Consultation:: ?r/o appendicitis - History of Present Illness Chief Complaint: N/V, LLQ pain, diarrhea History of Present Illness: 29yo M with no sig PMH, h/o L ACL repair and wisdom tooth (R upper and lower) earlier this week, presented with N/V which began after drinking lemon juice ( thought it would be good for his tooth sockets), but then would not stop. Thursday he had soft stool, Thursday he had the tooth extractions and was Rx amoxicillin 500mg bid and 800mg ibuprofen for afterward, which he took twice daily each for 2 days. He thinks there might have been infection at one of the tooth sites. He had diarrhea Thursday night and into Thursday. He had [place] takeout - sweet potato fries, soup, and was doing ok. Then he was not hungry for breakfast Thu, and drank some lemon juice, after which he vomited back up all food that he had eaten, and later had LLQ pain after all the vomiting. He came to the ER yesterday, where he had mild leukocytosis, was dehydrated, and CT with no PO contrast showed possible colitis with thickening of ascending and transverse colon but was limited by underdistention and lack of contrast, and appendix was not clearly seen, but there were no secondary signs of appendicitis. He was given IV fluids and started on Ceftriaxone and Flagyl. Surgery was asked to assess. GI and ID have seen patient. He is seen and examined in bed, with mother and grandmother at bedside. He reports feeling well now, has tolerated clear liquids. No nausea or pain now. No BM since the last diarrhea. - History Source History Provided By: Patient Limitations to Obtaining History: No Limitations - Past Medical History Additional Medical History: right upper and lower wisdom teeth just removed, possible infection - Past Surgical History Past Surgical History: Yes: Arthrosocopy (left ACL repair) Additional Surgical History: right upper and lower wisdom teeth pulled 01/16/2020 - Alcohol/Substance Use Hx Alcohol Use: No History of Substance Use: reports: Marijuana (daily) - Smoking History Smoking history: Former smoker Have you smoked in the past 12 months: No Aproximately how many cigarettes per day: 5 If you are a former smoker, when did you quit?: 1 yr ago - smoked <1/2ppd only - Social History Usual Living Arrangement: With Parent ADL: Independent 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 History of Recent Travel: No Home Medications - Allergies Allergies/Adverse Reactions: Allergies Allergy/AdvReac Type Severity Reaction Status Date / Time No Known Allergies Allergy Verified 01/18/20 19:09 - Home Medications Home Medications: Ambulatory Orders Amoxicillin 500 mg PO BID 01/18/20 Ibuprofen 800 mg PO BID PRN 01/19/20 Home Medications (free text): took 4 total doses of amoxicillin and ibuprofen after Mon tooth extractions (BID x 2), before he started vomiting Family Medical History Family History: Unremarkable (noncontributory) Review of Systems - Review of Systems Constitutional: denies: Chills, Fever Eyes: denies: Blurred Vision, Recent Change in Vision HENT: reports: Difficult Swallowing, Throat Pain, Other (felt a little discomfort in throat/tonsils Sun night before extractions, has been completely better since then and after vomiting stopped) Neck: denies: Pain on Movement, Stiffness Cardiovascular: denies: Chest Pain, Palpitations Respiratory: denies: Cough, SOB Gastrointestinal: reports: Abdominal Pain (with hpi), Diarrhea (with hpi), Nausea (with hpi), Vomiting (with hpi). denies: Constipation (no BM since last one 2d ago, but not usually) Genitourinary: denies: Burning, Dysuria Musculoskeletal: denies: Back Pain, Joint Pain, Muscle Pain Integumentary: denies: Change in Color, Rash Neurological: denies: Dizziness, Headache Psychiatric: denies: Anxiety, Depression Physical Exam Vital Signs: Vital Signs Temperature 98.6 F 01/19/20 13:20 Pulse Rate 54 L 01/19/20 13:20 Respiratory Rate 18 01/19/20 13:20 Blood Pressure 119/58 L 01/19/20 13:20 O2 Sat by Pulse Oximetry (%) 97 01/19/20 04:39 Constitutional: Yes: Well Nourished, No Distress, Calm Eyes: Yes: Conjunctiva Clear, EOM Intact HENT: Yes: Atraumatic, Normocephalic, Other (right wisdom teeth sockets noted - no marked swelling or tenderness in region) Neck: Yes: Supple, Trachea Midline Cardiovascular: Yes: Regular Rate and Rhythm Respiratory: Yes: Regular, CTA Bilaterally Gastrointestinal: Yes: Soft, Hyperactive Bowel Sounds. No: Distention, Hernia, Tenderness, Tenderness, Epigastrium ...Rectal Exam: Yes: Deferred Renal/: No: CVA Tenderness - Left, CVA Tenderness - Right Musculoskeletal: No: Back Pain, Joint Stiffness, Joint Swelling Extremities: No: Cool, Cyanosis Edema: No Peripheral Pulses WNL: Yes Integumentary: Yes: Tattoos. No: Jaundice, Rash Neurological: Yes: Alert, Oriented Psychiatric: Yes: Alert, Oriented Labs: CBC, BMP 01/19/20 06:30 01/19/20 06:30 CMP Sodium 141 mmol/L (136-145) 01/19/20 06:30 Potassium 3.7 mmol/L (3.5-5.1) 01/19/20 06:30 Chloride 111 mmol/L (98-107) H 01/19/20 06:30 Carbon Dioxide 20 mmol/L (21-32) L 01/19/20 06:30 Anion Gap 11 MMOL/L (8-16) 01/19/20 06:30 BUN 10.2 mg/dL (7-18) 01/19/20 06:30 Creatinine 0.9 mg/dL (0.55-1.3) 01/19/20 06:30 Est GFR (CKD-EPI)AfAm 131.44 01/19/20 06:30 Est GFR (CKD-EPI)NonAf 113.41 01/19/20 06:30 Random Glucose 109 mg/dL (74-106) H 01/19/20 06:30 Calcium 8.8 mg/dL (8.5-10.1) 01/19/20 06:30 Total Bilirubin 0.4 mg/dL (0.2-1) 01/19/20 06:30 AST 21 U/L (15-37) 01/19/20 06:30 ALT 24 U/L (13-61) 01/19/20 06:30 Alkaline Phosphatase 68 U/L (45-117) 01/19/20 06:30 Total Protein 7.1 g/dl (6.4-8.2) 01/19/20 06:30 Albumin 3.9 g/dl (3.4-5.0) 01/19/20 06:30 Lipase 74 U/L (73-393) 01/18/20 20:10 INR, PTT INR 1.23 (0.83-1.09) H 01/19/20 06:30 Urine Test Results Urine Color Yellow 01/19/20 00:33 Urine Appearance Clear 01/19/20 00:33 Urine pH >= 9.0 (5.0-8.0) H 01/19/20 00:33 Ur Specific Sidell 1.021 (1.010-1.035) 01/19/20 00:33 Urine Protein 1+ (NEGATIVE) H 01/19/20 00:33 Urine Glucose (UA) Negative (NEGATIVE) 01/19/20 00:33 Urine Ketones 3+ (NEGATIVE) H 01/19/20 00:33 Urine Blood Negative (NEGATIVE) 01/19/20 00: Urine Nitrite Negative (NEGATIVE) 01/19/20 00: Urine Bilirubin Negative (NEGATIVE) 01/19/20 00:33 Ur Leukocyte Esterase Negative (NEGATIVE) 01/19/20 00:33 Imaging - Results Cat Scan: Report Reviewed, Image Reviewed (no oral contrast given; appendix not definitively visualized but no inflammatory changes in RLQ, little stool in colon, underdistended proximal colon - ? if wall thickening or lack of distention, ?colitis; no obstruction) Problem List - Problems (1) Nausea and vomiting Code(s): R11.2 - NAUSEA WITH VOMITING, UNSPECIFIED Qualifiers: Vomiting type: unspecified Vomiting Intractability: non-intractable Qualified Code(s): R11.2 - Nausea with vomiting, unspecified (2) LLQ pain Code(s): R10.32 - LEFT LOWER QUADRANT PAIN (3) S/P wisdom tooth extraction Assessment/Plan: was supposed to take 6 days of amoxicillin 500mg bid - only had 2 got Ceftriaxone and Flagyl at hospital, but stopping per ID advised to discuss with his oral surgeon regarding whether to take more amoxicillin and when to follow up (sooner than later) Code(s): Z98.818 - OTHER DENTAL PROCEDURE STATUS (4) Gastroenteritis Code(s): K52.9 - NONINFECTIVE GASTROENTERITIS AND COLITIS, UNSPECIFIED Assessment/Plan suspect vomiting was triggered by combination of factors, including amoxicillin/ antibiotic, high-dose ibuprofen (gastric irritant), and drinking lemon juice right before it started LLQ pain only after multiple emesis episodes, now gone CT findings may or may not represent true colitis possible gastroenteritis no suspicion for appendicitis N/V and abd pain have both resolved pt tolerating clears would advance to SOFT diet as tolerated, given recent tooth extractions pt advised to f/u with oral surgeon lay[place] no acute surgical issues will sign off - please call with questions as needed discussed with Dr. Rodarte
--- NOTE | 2020-01-19 16:46 | PN ---
Teaching Attending Note Name of Resident: Julien Rodarte ATTENDING PHYSICIAN STATEMENT I saw and evaluated the patient. I reviewed the resident's note and discussed the case with the resident. I agree with the resident's findings and plan as documented. SUBJECTIVE: Patient is feeling better with no acute distress. No nausea or vomiting. No further diarrhea, comfortable. OBJECTIVE: Vital Signs Temperature 98.6 F 01/19/20 13:20 Pulse Rate 54 L 01/19/20 13:20 Respiratory Rate 18 01/19/20 13:20 Blood Pressure 119/58 L 01/19/20 13:20 O2 Sat by Pulse Oximetry (%) 97 01/19/20 04:39 Initial Vital Signs Pulse Resp BP Pulse Ox 95 H 18 109/46 L 100 01/18/20 19:06 01/18/20 19:06 01/18/20 19:06 01/18/20 19:06 GENERAL: The patient is awake, alert, and fully oriented, in no acute distress. HEAD: Normal with no signs of trauma. EYES: PERRL, extraocular movements intact, sclera anicteric, conjunctiva clear. ENT: Ears normal, oropharynx clear without exudates, moist mucous membranes. NECK: Trachea midline, full range of motion, supple. LUNGS: Breath sounds equal, clear to auscultation bilaterally, no wheezes, no crackles, no accessory muscle use. HEART: Regular rate and rhythm, S1, S2 without murmur, rub or gallop. ABDOMEN: Soft, ND,NT, normoactive bowel sounds, no guarding, no rebound, no hepatosplenomegaly, no masses. EXTREMITIES: 2+ pulses, warm, well-perfused, no edema. NEUROLOGICAL: Cranial nerves II through XII grossly intact. Normal speech, gait not observed. PSYCH: Normal mood, normal affect. SKIN: Warm, dry, normal turgor, no rashes or lesions noted CBCD WBC 7.5 K/mm3 (4.0-10.0) 01/19/20 06:30 RBC 4.94 M/mm3 (4.00-5.60) 01/19/20 06:30 Hgb 13.5 GM/dL (11.7-16.9) 01/19/20 06:30 Hct 39.5 % (35.4-49) 01/19/20 06:30 MCV 80.1 fl (80-96) 01/19/20 06:30 MCHC 34.1 g/dl (32.0-35.9) 01/19/20 06:30 RDW 13.7 % (11.9-15.9) 01/19/20 06:30 Plt Count 197 K/MM3 (134-434) 01/19/20 06:30 MPV 9.3 fl (7.5-11.1) 01/19/20 06:30 CMP Sodium 141 mmol/L (136-145) 01/19/20 06:30 Potassium 3.7 mmol/L (3.5-5.1) 01/19/20 06:30 Chloride 111 mmol/L (98-107) H 01/19/20 06:30 Carbon Dioxide 20 mmol/L (21-32) L 01/19/20 06:30 Anion Gap 11 MMOL/L (8-16) 01/19/20 06:30 BUN 10.2 mg/dL (7-18) 01/19/20 06:30 Creatinine 0.9 mg/dL (0.55-1.3) 01/19/20 06:30 Random Glucose 109 mg/dL (74-106) H 01/19/20 06:30 Calcium 8.8 mg/dL (8.5-10.1) 01/19/20 06:30 Total Bilirubin 0.4 mg/dL (0.2-1) 01/19/20 06:30 AST 21 U/L (15-37) 01/19/20 06:30 ALT 24 U/L (13-61) 01/19/20 06:30 Alkaline Phosphatase 68 U/L (45-117) 01/19/20 06:30 Total Protein 7.1 g/dl (6.4-8.2) 01/19/20 06:30 Albumin 3.9 g/dl (3.4-5.0) 01/19/20 06:30 Current Medications Generic Name Dose Route Start Last Admin Trade Name Freq PRN Reason Stop Dose Admin Sodium Chloride 1,000 mls @ 83 mls/hr 01/18/20 23:45 01/19/20 00:50 Normal Saline - IV 83 mls/hr ASDIR NEO Administration CT abdomen: limited view of appendix, cannot r/o appendicitis. limited eval of colon; mild concentric wall thickening along ascending & prox transverse colon, possible acute colitis. ASSESSMENT AND PLAN: Patient is a 29yom with a Pmhx of marijuana use admitted for having acute gastroenteritis. # Acute Gastroenteritis in IVF , cannot r/o colitis , leukocytosis improved, patient is no longer throwing up, no further diarrhea. #Marijuana use disorder : importance of stopping use, Utox positive for cannabis #Tobacco dependence: discussed tobacco cessation ; patch or nicorette gum prn if tolerates diet can be dischaRged home. patient is comfortable.
--- NOTE | 2020-01-19 16:55 | DS ---
Physical Exam: SUBJECTIVE: Patient seen and examined at the bedside. Noted fever overnight. Patient stated that he is feeling well and has not had any episodes of vomiting or diarrhea since admission. Denied cp, sob, abd pain, n/v/c/d, headaches, dizziness, lightheadedness. OBJECTIVE: Vital Signs Period Temp Pulse Resp BP Sys/Jameson Pulse Ox Last 24 Hr 97.4 F-101 F 52-95 17-20 107-119/46-63 97-100 PHYSICAL EXAM GENERAL: The patient is awake, alert, and fully oriented, in no acute distress. EYES: PERRL, extraocular movements intact, conjunctiva clear. ENT: Oropharynx clear without exudates, moist mucous membranes. LUNGS: Breath sounds equal, clear to auscultation bilaterally, no wheezes, no crackles, no accessory muscle use. HEART: Regular rate and rhythm, S1, S2 without murmur, rub. ABDOMEN: Soft, nontender, nondistended, normoactive bowel sounds, no guarding, no rebound, no masses. EXTREMITIES: 2+ pulses, warm, well-perfused, no edema. PSYCH: Normal mood, normal affect. SKIN: Warm, dry, normal turgor, no rashes or lesions noted. LABS Laboratory Results - last 24 hr 01/18/20 01/18/20 01/18/20 20:10 20:10 20:10 WBC 12.4 H RBC 5.47 Hgb 14.7 Hct 44.4 MCV 81.1 MCH 26.9 MCHC 33.2 RDW 13.8 Plt Count 221 MPV 9.2 Absolute Neuts (auto) 11.0 H Neutrophils % 88.5 H Lymphocytes % 6.3 L D Monocytes % 4.9 Eosinophils % 0.0 D Basophils % 0.3 Nucleated RBC % 0 PT with INR INR PTT (Actin FS) Sodium 140 Potassium 4.5 Chloride 108 H Carbon Dioxide 23 Anion Gap 10 BUN 9.8 Creatinine 1.0 Est GFR (CKD-EPI)AfAm 115.72 Est GFR (CKD-EPI)NonAf 99.85 Random Glucose 143 H Calcium 10.1 Total Bilirubin 0.6 AST 32 ALT 28 Alkaline Phosphatase 78 Total Protein 8.0 Albumin 4.5 Lipase 74 Urine Color Urine Appearance Urine pH Ur Specific Kirkman Urine Protein Urine Glucose (UA) Urine Ketones Urine Blood Urine Nitrite Urine Bilirubin Urine Urobilinogen Ur Leukocyte Esterase Urine WBC (Auto) Urine RBC (Auto) Urine Casts (Auto) U Epithel Cells (Auto) U Sm Round Cell (Auto) Urine Bacteria (Auto) Opiates Screen Methadone Screen Barbiturate Screen Phencyclidine Screen Ur Amphetamines Screen MDMA (Ecstasy) Screen Benzodiazepines Screen Cocaine Screen U Marijuana (THC) Screen Blood Type Antibody Screen 01/18/20 01/19/20 01/19/20 21:20 00:33 06:30 WBC 7.5 RBC 4.94 Hgb 13.5 Hct 39.5 MCV 80.1 MCH 27.3 MCHC 34.1 RDW 13.7 Plt Count 197 MPV 9.3 Absolute Neuts (auto) 6.3 Neutrophils % 83.3 H Lymphocytes % 10.7 D Monocytes % 5.9 Eosinophils % 0.0 Basophils % 0.1 Nucleated RBC % 0 PT with INR INR PTT (Actin FS) Sodium Potassium Chloride Carbon Dioxide Anion Gap BUN Creatinine Est GFR (CKD-EPI)AfAm Est GFR (CKD-EPI)NonAf Random Glucose Calcium Total Bilirubin AST ALT Alkaline Phosphatase Total Protein Albumin Lipase Urine Color Yellow Urine Appearance Clear Urine pH >= 9.0 H Ur Specific Kirkman 1.021 Urine Protein 1+ H Urine Glucose (UA) Negative Urine Ketones 3+ H Urine Blood Negative Urine Nitrite Negative Urine Bilirubin Negative Urine Urobilinogen 1.0 Ur Leukocyte Esterase Negative Urine WBC (Auto) 1 Urine RBC (Auto) 1 Urine Casts (Auto) 11 U Epithel Cells (Auto) 4.2 U Sm Round Cell (Auto) None seen Urine Bacteria (Auto) 0.3 Opiates Screen Negative Methadone Screen Negative Barbiturate Screen Negative Phencyclidine Screen Negative Ur Amphetamines Screen Negative MDMA (Ecstasy) Screen Negative Benzodiazepines Screen Negative Cocaine Screen Negative U Marijuana (THC) Screen Positive A* Blood Type Antibody Screen 01/19/20 01/19/20 01/19/20 06:30 06:30 06:30 WBC RBC Hgb Hct MCV MCH MCHC RDW Plt Count MPV Absolute Neuts (auto) Neutrophils % Lymphocytes % Monocytes % Eosinophils % Basophils % Nucleated RBC % PT with INR 14.50 H INR 1.23 H PTT (Actin FS) 33.2 Sodium 141 Potassium 3.7 Chloride 111 H Carbon Dioxide 20 L Anion Gap 11 BUN 10.2 Creatinine 0.9 Est GFR (CKD-EPI)AfAm 131.44 Est GFR (CKD-EPI)NonAf 113.41 Random Glucose 109 H Calcium 8.8 Total Bilirubin 0.4 AST 21 ALT 24 Alkaline Phosphatase 68 Total Protein 7.1 Albumin 3.9 Lipase Urine Color Urine Appearance Urine pH Ur Specific Kirkman Urine Protein Urine Glucose (UA) Urine Ketones Urine Blood Urine Nitrite Urine Bilirubin Urine Urobilinogen Ur Leukocyte Esterase Urine WBC (Auto) Urine RBC (Auto) Urine Casts (Auto) U Epithel Cells (Auto) U Sm Round Cell (Auto) Urine Bacteria (Auto) Opiates Screen Methadone Screen Barbiturate Screen Phencyclidine Screen Ur Amphetamines Screen MDMA (Ecstasy) Screen Benzodiazepines Screen Cocaine Screen U Marijuana (THC) Screen Blood Type A POSITIVE Antibody Screen Negative HOSPITAL COURSE: Pavan Ewing is a 29 year old male with a past medical history of daily marijuana use admitted for vomiting and abdominal pain likely secondary to acute gastroenteritis. CT abdomen performed noting limited view of appendix, cannot r/ o appendicitis. limited eval of colon; mild concentric wall thickening along ascending & prox transverse colon, possible acute colitis. Seen by surgery noting likely gastroenteritis, LLQ only after emesis, no suspicion for appendicitis and can advance diet. Seen by GI who recommended advancing diet from clears to low fiber. Patient's abdominal pain improved and patient was able to tolerate diet well. Was educated on marijuana and tobacco cessation. Was advised to follow up with his primary care physician, gastroenterology, and his dentist after his tooth extraction. Patient was advised of the plan and was in agreement. Patient was discharged in stable medical condition. Date of Admission:01/18/20 Date of Discharge: 01/19/20 Minutes to complete discharge: 35 Discharge Summary Problems reviewed: Yes Reason For Visit: COLITIS,NAUSEA AND VOMITING,ABD PAIN Condition: Improved - Instructions Diet, Activity, Other Instructions: You were admitted for abdominal pain. You had a CT scan of your abdomen which noted thickening of your colon suggestive of inflammation of your colon called colitis. You were given fluids and pain medications to control your symptoms. Your symptoms resolved and you are advised to follow up with your primary care doctor and mirror department supervisor (stomach, liver, intestine doctor). MEDICATIONS Complete your amoxicillin as prescribed by your dentist. Continue to take all of your home medications as prescribed. REFERRALS Please follow up with your primary care doctor, Dr. Siddhartha Mari, within 1 week. Please follow up with the mirror department supervisor, Dr. Colin Hugehs, within 1 week. Please follow up with your dentist for continued treatment of your tooth. SPECIAL INSTRUCTIONS Avoid eating spicy food, avoid alcohol, avoid tobacco, avoid other drug use. Eat a bland diet for now. Follow up with the physicians listed. If you have symptoms of inability to eat, persistent vomiting, blood or bile in the vomit, increasing abdominal pain, persistent or bloody diarrhea, fevers, or any other general feelings of unwellness, please call 911 or go to your nearest emergency room. Referrals: Krish Hughes DO [Staff Physician] - 1 Week Siddhartha Mari MD [Primary Care Provider] - 1 Week Disposition: HOME - Home Medications Comprehensive Discharge Medication List: Ambulatory Orders Amoxicillin 500 mg PO BID 01/18/20 Problem List - Problems (1) Abdominal pain Code(s): R10.9 - UNSPECIFIED ABDOMINAL PAIN (2) Colitis Code(s): K52.9 - NONINFECTIVE GASTROENTERITIS AND COLITIS, UNSPECIFIED (3) Gastroenteritis Code(s): K52.9 - NONINFECTIVE GASTROENTERITIS AND COLITIS, UNSPECIFIED (4) LLQ pain Code(s): R10.32 - LEFT LOWER QUADRANT PAIN (5) Nausea and vomiting Code(s): R11.2 - NAUSEA WITH VOMITING, UNSPECIFIED Qualifiers: Vomiting type: unspecified Vomiting Intractability: non-intractable Qualified Code(s): R11.2 - Nausea with vomiting, unspecified (6) S/P wisdom tooth extraction Code(s): Z98.818 - OTHER DENTAL PROCEDURE STATUS This patient is new to me today: Yes Date on this admission: 01/19/20 Emergency Visit: Yes ED Registration Date: 01/18/20 Care time: The patient presented to the Emergency Department on the above date and was hospitalized for further evaluation of their emergent condition. Critical Care patient: No - Discharge Referral Referred to [facility] Yes Physician Referral: Colin Hughes DO (GI)
== END 2020-01-19 19:18 | disposition home or self-care (01) | DRG 249 ==
LOC: JER 18:53 → JERBED 22:39 → OBSVTOIN 23:41 → J6S 01-19 03:35
PROVIDERS: ADMIT Internal Medicine; ATTEND Internal Medicine
DX: K52.9 Noninfective gastroenteritis and colitis, unspecified (principal); R11.2 Nausea with vomiting, unspecified; D72.829 Elevated white blood cell count, unspecified; F17.210 Nicotine dependence, cigarettes, uncomplicated; R00.1 Bradycardia, unspecified; F12.90 Cannabis use, unspecified, uncomplicated; R10.32 Left lower quadrant pain; Z98.818 Other dental procedure status
CPT/HCPCS: 36415; 74177-TC; 80053; 80307; 81003; 83690; 85025; 85610; 85730; 86850; 86900; 86901; 87045; 87046; 87186; 93005; 93010; 99285-25; G0378; J7030; Q9967

== ENCOUNTER 2023-08-08 14:54 | Emergency (ER) | payer OTHER ==
[2023-08-08 15:01] VITALS: BMI 28.1
[2023-08-08] MEDS ORDERED: SODIUM CHLORIDE 0.9% 500 ML INFUS.BAG IV ONE (15:16)
[2023-08-08] MEDS ORDERED: FAMOTIDINE 20 MG/50 ML IVPB 20 MG/50 ML MG IVPB ONE ×2 (15:17→15:26)
[2023-08-08] MEDS ORDERED: ACETAMINOPHEN 1000 MG/100 ML BAG IVPB ONE (15:17)
[2023-08-08] MEDS ORDERED: METOCLOPRAMIDE HCL INJECTION 10 MG/2 ML VIAL IVPUSH ONE (15:17)
[2023-08-08] MEDS ORDERED: METOCLOPRAMIDE HCL INJECTION 10 MG/2 ML VIAL ONE (15:25)
[2023-08-08] MEDS ORDERED: ACETAMINOPHEN INJECTION 100 ML IVPB ONE (15:26)
[2023-08-08 15:52] LABS: BASO % 0.3 % (0-2.0); EOS % 1.7 % (0-4.5); HEMATOCRIT 45.9 % (35.4-49); HEMOGLOBIN 15.5 GM/dL (11.7-16.9); LYMPH % 13.1 % (8-40); MCH 27.6 pg (25.7-33.7); MCHC 33.8 g/dl (32.0-35.9); MEAN CELL VOLUME 81.5 fl (80-96); MEAN PLT VOLUME 8.3 fl (7.5-11.1); MONO % 4.8 % (3.8-10.2); NEUT % 80.1 % (42.8-82.8); PLATELET COUNT 255 10^3/uL (134-434); RBC 5.64 M/mm3 (4.00-5.60); RDW 14.3 % (11.9-15.9)
[2023-08-08 16:16] LABS: POTASSIUM 5.1 mmol/L (3.5-5.1)
[2023-08-08 16:18] LABS: CALCIUM 9.4 mg/dL (8.5-10.1)
[2023-08-08 16:20] LABS: ALBUMIN 4.6 g/dl (3.4-5.0); BLOOD UREA NITROGEN 6.1 mg/dL (7-18)
[2023-08-08 16:24] LABS: BILIRUBIN,TOTAL 0.4 mg/dL (0.2-1); TOT PROT 7.8 g/dl (6.4-8.2)
[2023-08-08] MEDS ORDERED: HALOPERIDOL LACTATE 5 MG/ML IM ONE ×3 (16:59→17:04)
[2023-08-08 18:56] VITALS: BP 122/58; PULSE 83; RESP 20; TEMP 99.1
== END 2023-08-08 18:53 | disposition home or self-care (01) ==
LOC: JER 14:54
PROC: 3E033GC Introduction of Other Therapeutic Substance into Peripheral Vein, Percutaneous Approach (ICD-10-PCS; principal; 2023-08-08)
PROC: 3E033NZ Introduction of Analgesics, Hypnotics, Sedatives into Peripheral Vein, Percutaneous Approach (ICD-10-PCS; 2023-08-08)
PROC: 3E033GC Introduction of Other Therapeutic Substance into Peripheral Vein, Percutaneous Approach (ICD-10-PCS; 2023-08-08)
PROC: 3E023GC Introduction of Other Therapeutic Substance into Muscle, Percutaneous Approach (ICD-10-PCS; 2023-08-08)
DX: R11.2 Nausea with vomiting, unspecified (principal); R10.13 Epigastric pain; R10.33 Periumbilical pain; R63.0 Anorexia
CPT/HCPCS: 36415; 80053; 83690; 83735; 85025; 93005; 93010; 99284-25

== ENCOUNTER 2024-09-28 19:27 | Emergency (ER) | payer SELFPAY ==
[2024-09-28 19:33] VITALS: BP 131/94; PULSE 68; RESP 20; TEMP 97.9; BMI 26.6
[2024-09-28] MEDS ORDERED: HALOPERIDOL LACTATE 5 MG/ML ONE (20:08)
[2024-09-28] MEDS ORDERED: ONDANSETRON *ODT* 4 MG TABLET ONE (20:09)
[2024-09-28] MEDS: ONDANSETRON *ODT* 4 MG TABLET SL ONE (20:15)
[2024-09-28] MEDS: HALOPERIDOL LACTATE 5 MG/ML IM ONE (20:15)
[2024-09-28] MEDS ORDERED: FAMOTIDINE 20 MG TABLET ONE (20:53)
[2024-09-28] MEDS ORDERED: MAG HYDROX/AL HYDROX/SIMETH 30 ML UNIT-DOSE CUP ONE (20:53)
[2024-09-28] MEDS: MAG HYDROX/AL HYDROX/SIMETH 30 ML UNIT-DOSE CUP PO ONE (21:01)
[2024-09-28] MEDS: FAMOTIDINE 20 MG TABLET PO ONE (21:01)
== END 2024-09-28 22:24 | disposition home or self-care (01) ==
LOC: JER 19:27
PROC: 3E023GC Introduction of Other Therapeutic Substance into Muscle, Percutaneous Approach (ICD-10-PCS; principal; 2024-09-28)
DX: R11.2 Nausea with vomiting, unspecified (principal); R10.13 Epigastric pain; T78.1XXA Other adverse food reactions, not elsewhere classified, initial encounter; F12.90 Cannabis use, unspecified, uncomplicated
CPT/HCPCS: 99284-25; Q0162